=== PATIENT | male | born 1970 | race Caucasian/White ===

== ENCOUNTER 2017-04-15 07:56 | Emergency (ER) | payer OTHER ==
[~2017-04-15] VITALS: Ht 190.5 cm; Wt 167.8 kg
[~2017-04-15 07:56] MED LIST: AMLO10TA2 PO; ARIP30TA PO; ASPI81TA2 PO; ATOR40TA PO; FOLI1TAB16 PO; GABA-534 PO; GABA-536 PO; LISI-658 PO; METH4TAB16 PO; METO25TA20 PO; Nitroglycerin SL; SERT100T PO; TEMA30CA PO; TRAZ-147 PO
--- NOTE | 2017-04-15 08:20 | NUR ---
Ирина from street dt suicidal thought with plan to ran in traffic. Patient is aao4.Appears in no apparent distress. VSs.
[2017-04-15] MEDS ORDERED: LORAZEPAM 1 MG TABLET ONE (08:22)
[2017-04-15 08:26] LABS: BASOPHILS % (AUTO) 0.3 % (0.0-2.0); EOSINOPHILS # (AUTO) 0.2 /CMM (0.0-0.7); EOSINOPHILS % (AUTO) 1.9 % (0.0-6.0); HEMATOCRIT 45 % (39-51); HEMOGLOBIN 15.1 g/dL (13.5-17.5); LYMPHOCYTES # (AUTO) 1.8 /CMM (0.8-4.8); LYMPHOCYTES % (AUTO) 13.9 % (20.0-44.0); MEAN CORPUSCULAR HEMOGLOBIN 30 PG (26.0-33.0); MEAN CORPUSCULAR HGB CONC 34 g/dl (31.0-36.0); MEAN CORPUSCULAR VOLUME 89 fL (80-96); MONOCYTES # (AUTO) 0.6 /CMM (0.1-1.30); NEUTROPHILS % (AUTO) 78.9 % (43.0-81.0); PLATELET COUNT (AUTO) 190 /CMM (150-450); RDW COEFFICIENT OF VARIATION 14.4 (11.5-15.0); RED BLOOD CELL COUNT(AUTO) 5.05 MIL/uL (4.5-6.0); WHITE BLOOD COUNT (AUTO) 12.7 K/uL (4.3-11.0)
--- NOTE | 2017-04-15 08:27 | NUR ---
medicated pt as ordered
[2017-04-15] MEDS ORDERED: LORAZEPAM 1 MG TABLET PO ONE (08:30)
[2017-04-15 08:35] LABS: CALCIUM, SERUM 9.1 mg/dL (8.5-10.1); CARBON DIOXIDE 30 mmol/L (21-32); CHLORIDE 103 mmol/L (98-107); CREATININE 1.1 mg/dL (0.6-1.3); GLUCOSE 94 mg/dL (74-106); POTASSIUM 3.6 mmol/L (3.5-5.1); SODIUM SERUM 140 mmol/L (136-145); UREA NITROGEN, BLOOD 15 mg/dL (7-18)
[2017-04-15 08:41] LABS: ACETAMINOPHEN 0 ug/ml (10-30); ALANINE AMINOTRANSFERASE 63 U/L (12-78); ALBUMIN 3.7 g/dL (3.4-5.0); ALCOHOL, BLOOD < 3 mg/dL (0-0); ALKALINE PHOSPHATASE 94 U/L (46-116); ASPARTATE AMINOTRANSFERASE 100 U/L (15-37); BILIRUBIN,DIRECT 0.2 mg/dL (0.0-0.2); BILIRUBIN,TOTAL 0.7 mg/dL (0.2-1.0); SALICYLATE 1.6 mg/dL (2.8-20.0); TOTAL PROTEIN, SERUM 7.9 g/dL (6.4-8.2)
--- NOTE | 2017-04-15 08:53 | NUR ---
[facility] CALLED FOR PATIENT EVAL [phone]. LEFT VOICE MESSAGE.
--- NOTE | 2017-04-15 09:03 | NUR ---
Urine sample sent to lab
--- NOTE | 2017-04-15 09:14 | NUR ---
moraima called back, eta 60 min
[2017-04-15 09:51] LABS: APPEARANCE,URINE CLEAR (CLEAR); BILIRUBIN,URINE NEGATIVE (NEGATIVE); BLOOD, URINE NEGATIVE Ery/uL (NEGATIVE); COLOR,URINE YELLOW (YELLOW); KETONES,URINE NEGATIVE (NEGATIVE); LEUKOCYTE ESTERASE ,URINE NEGATIVE (NEGATIVE); NITRITE, URINE NEGATIVE (NEGATIVE); PROTEIN,URINE NEGATIVE (NEGATIVE); UGLUCOSE NEGATIVE (NEGATIVE); UROBILINOGEN,URINE 0.2 EU/dL (0.2)
[2017-04-15 11:41] VITALS: BP 124/60
--- NOTE | 2017-04-15 11:51 | NUR ---
CALLED [facility] FOR TRANSPORT TO [facility] 12PM, TRIP #[id number]
--- NOTE | 2017-04-15 12:32 | NUR ---
report given to nurse Son at [facility]
--- NOTE | 2017-04-15 12:38 | NUR ---
PATIENT TRANSPPPORTED TO [facility]
== END 2017-04-15 12:39 ==
LOC: ER 08:00
DX: F32.9 Major depressive disorder, single episode, unspecified (principal); I10 Essential (primary) hypertension; E11.9 Type 2 diabetes mellitus without complications; F20.9 Schizophrenia, unspecified; F17.200 Nicotine dependence, unspecified, uncomplicated; F10.10 Alcohol abuse, uncomplicated; Z88.8 Allergy status to other drugs, medicaments and biological substances; Z79.82 Long term (current) use of aspirin; Z79.84 Long term (current) use of oral hypoglycemic drugs
CPT/HCPCS: 36415; 80048; 80076; 80305; 80329; 81001; 85025; 99285; A4606; G0480 ×2; Z7610; 81000-TC

== ENCOUNTER 2017-06-10 10:52 | Emergency (ER) | payer OTHER ==
[~2017-06-10] VITALS: Ht 177.8 cm; Wt 136.1 kg
[~2017-06-10 10:52] MED LIST changes: -ARIP30TA PO; +ARIP30TA3 PO; +ASPI-1169 PO; -ASPI81TA2 PO
[2017-06-10 10:56] VITALS: BP 140/79
[2017-06-10] MEDS ORDERED: LORAZEPAM 1 MG TABLET PO ONE (11:30)
[2017-06-10] MEDS ORDERED: LORAZEPAM 1 MG TABLET ONE (12:04)
== END 2017-06-10 12:28 | disposition home or self-care (01) ==
LOC: ER 10:54
DX: F15.10 Other stimulant abuse, uncomplicated (principal); I10 Essential (primary) hypertension; E11.9 Type 2 diabetes mellitus without complications; F32.9 Major depressive disorder, single episode, unspecified; F20.9 Schizophrenia, unspecified; F10.10 Alcohol abuse, uncomplicated; F17.200 Nicotine dependence, unspecified, uncomplicated; Z79.82 Long term (current) use of aspirin; Z88.8 Allergy status to other drugs, medicaments and biological substances
CPT/HCPCS: 99283; A4606; Z7610

== ENCOUNTER 2017-10-11 19:53 | Inpatient (IN) | payer OTHER ==
[~2017-10-11] VITALS: Ht 180.3 cm; Wt 129.7 kg
[~2017-10-11 19:53] MED LIST changes: -AMLO10TA2 PO; +AMLO10TA6 PO; -TRAZ-147 PO; +TRAZ-214 PO
--- NOTE | 2017-10-11 20:00 | NUR ---
PT TO ER BED 12. BIB RA FROM STREET C/O CP X 2 HOURS. DENIES SOB. PT PLACED IN GOWN AND ON PHOTOGRAPHER HELPER. VSS/RESP EVEN UNLABORED/NAD NOTED/SKIN WARM AND DRY/AFEBRILE/DENIES N-V-D/AOX4. MD AT BEDSIDE FOR EVAL.
--- NOTE | 2017-10-11 20:03 | NUR ---
18G IV X 1 ATTEMPT TO L HAND USING ASEPTIC TECH, BLOOD HANDED OVER TO THE LAB AT BEDSIDE. IV FLUSHES EASILY WITH NS, NO S/S INFILTRATION NOTED AT THIS TIME.
--- NOTE | 2017-10-11 20:05 | NUR ---
EMT AT BEDSIDE FOR EKG.
[2017-10-11 20:13] LABS: BASOPHILS # (AUTO) 0.4 /CMM (0.0-0.2); BASOPHILS % (AUTO) 3.3 % (0.0-2.0); EOSINOPHILS % (AUTO) 2.8 % (0.0-6.0); HEMATOCRIT 44 % (39-51); HEMOGLOBIN 14.8 g/dL (13.5-17.5); LYMPHOCYTES # (AUTO) 2.1 /CMM (0.8-4.8); LYMPHOCYTES % (AUTO) 18.1 % (20.0-44.0); MEAN CORPUSCULAR HGB CONC 34 g/dl (31.0-36.0); MEAN CORPUSCULAR VOLUME 86 fL (80-96); MONOCYTES # (AUTO) 0.8 /CMM (0.1-1.30); MONOCYTES % (AUTO) 6.5 % (2.0-12.0); NEUTROPHILS # (AUTO) 8.2 /CMM (1.8-8.9); NEUTROPHILS % (AUTO) 69.3 % (43.0-81.0); PLATELET COUNT (AUTO) 237 /CMM (150-450); RDW COEFFICIENT OF VARIATION 14.2 (11.5-15.0); RED BLOOD CELL COUNT(AUTO) 5.12 MIL/uL (4.5-6.0); WHITE BLOOD COUNT (AUTO) 11.8 K/uL (4.3-11.0)
[2017-10-11] MEDS ORDERED: ASPIRIN 325 MG TABLET ONE (20:16)
[2017-10-11 20:21] LABS: ALCOHOL, BLOOD 26 mg/dL (0-0); CALCIUM, SERUM 8.9 mg/dL (8.5-10.1); CARBON DIOXIDE 25 mmol/L (21-32); CHLORIDE 103 mmol/L (98-107); CREATININE 1.2 mg/dL (0.6-1.3); GLUCOSE 104 mg/dL (74-106); POTASSIUM 3.7 mmol/L (3.5-5.1); SODIUM SERUM 137 mmol/L (136-145); UREA NITROGEN, BLOOD 12 mg/dL (7-18)
[2017-10-11 20:24] LABS: INR 0.89 (0.85-1.15)
[2017-10-11 20:28] LABS: TROPONIN I < 0.017 ng/mL (0.00-0.056)
[2017-10-11] MEDS ORDERED: ASPIRIN 325 MG TABLET PO ONE (20:30)
--- NOTE | 2017-10-11 20:37 | NUR ---
PT VOICED TO ER THAT HE WANTS TO HURT HIMSELF BY RUNNING OUT IN TO TRAFFIC. SUICIDE PRECAUTIONS IN PLACE, PT BELONGINGS PLACED AT NURSES STATION.
--- NOTE | 2017-10-11 20:41 | NUR ---
DARCY CALLED, HANS CAMARENA PRINTED CIRCUIT BOARDS PLASMA ETCHER, TRANSFERRED TO
--- NOTE | 2017-10-11 20:42 | NUR ---
CALLED NURSING SUP. FOR TELE BED
--- NOTE | 2017-10-11 20:52 | NUR ---
TELE 114-1 FOR CHEST PAIN, HANS CAMARENA ADMITTING
--- NOTE | 2017-10-11 21:04 | NUR ---
UNABLE TO OBTAIN URINE, MADE AWARE.
--- NOTE | 2017-10-11 21:11 | NUR ---
ENDORSED TO GARRISON NICK FOR CJ.
--- NOTE | 2017-10-11 21:11 | NUR ---
Jose mcgill in [facility] - 10/11/17 at 2122 by SHAJI REPORT GIVEN TO GARRISON COLON FOR CJ.
--- NOTE | 2017-10-11 21:21 | NUR ---
PT TRANSPORTED VIA STRETCHER ON SOUND MIXER WITH RN PER ACLS PROTOCOL. VSS.
[2017-10-11 22:00] VITALS: BP 137/81
[2017-10-11] MEDS ORDERED: Z GUARD REMEDY 2 OZ OINT TP PRN (22:00)
[2017-10-11] MEDS ORDERED: HYDROCODONE/APAP 5/325MG 1 EACH TABLET PO PRN (22:00)
[2017-10-11] MEDS ORDERED: MAG HYDROX/AL HYDROX/SIMETH 30 ML UDC PO PRN (22:00)
[2017-10-11] MEDS ORDERED: NITROGLYCERIN 0.4 MG/TAB BOTTLE SL PRN (22:00)
[2017-10-11] MEDS ORDERED: ACETAMINOPHEN 325 MG TABLET PO PRN (22:00)
[2017-10-11] MEDS ORDERED: ONDANSETRON HCL/PF 4 MG/2 ML VIAL IVP PRN (22:00)
[2017-10-11] MEDS ORDERED: HYDROCODONE/APAP 10/325MG 1 EA TABLET PO PRN (22:00)
[2017-10-11] MEDS ORDERED: MAGNESIUM HYDROXIDE 30 ML UDC PO PRN (22:00)
--- NOTE | 2017-10-11 23:00 | NUR ---
RN OPENING NOTES RECEDED PT FROM ER. PT IS STABLE, A/O X3,NO ACUTE DISTRESS IS NOTED AT THIS TIME. PT COMPLINES OF MILD , NOT RADIATING CHEST PAIN 3/10. PT O2 LEVEL IS 91% RA, PT PLACED ON 3L O2 NC, OXYGENATION LEVEL WENT UP TO 96%. PT BELONGING AT BED SIDE AND DOCUMENTED, SAFETY PRECAUTIONS IMPLEMENTED, BED IN LOWEST, LOCKED POSITION, CALL LIGHT IN REACH, PT IS ORIENTED TO THE UNIT AND THE SITTER IS BEDSIDE. DR CAMARENA AT BEDSIDE, TALKED TO THE PT. WILL CONT. MONITORING.
[2017-10-12] VITALS (8 sets, daily range): BP systolic 125–146; BP diastolic 55–93
[2017-10-12] MEDS: ATORVASTATIN 40 MG TABLET PO SCH ×2 (00:01→21:15)
[2017-10-12] MEDS: ENOXAPARIN SODIUM 40 MG/0.4 ML DISP.SYRIN SQ SCH ×2 (00:03→21:17)
[2017-10-12 05:32] LABS: BASOPHILS # (AUTO) 0.1 /CMM (0.0-0.2); BASOPHILS % (AUTO) 1.3 % (0.0-2.0); EOSINOPHILS % (AUTO) 3.6 % (0.0-6.0); HEMATOCRIT 41 % (39-51); LYMPHOCYTES # (AUTO) 2.1 /CMM (0.8-4.8); LYMPHOCYTES % (AUTO) 19.2 % (20.0-44.0); MEAN CORPUSCULAR HGB CONC 34 g/dl (31.0-36.0); MEAN CORPUSCULAR VOLUME 86 fL (80-96); MONOCYTES # (AUTO) 0.7 /CMM (0.1-1.30); MONOCYTES % (AUTO) 6.1 % (2.0-12.0); NEUTROPHILS # (AUTO) 7.8 /CMM (1.8-8.9); NEUTROPHILS % (AUTO) 69.8 % (43.0-81.0); PLATELET COUNT (AUTO) 199 /CMM (150-450); RDW COEFFICIENT OF VARIATION 14.9 (11.5-15.0); RED BLOOD CELL COUNT(AUTO) 4.77 MIL/uL (4.5-6.0); WHITE BLOOD COUNT (AUTO) 11.1 K/uL (4.3-11.0)
[2017-10-12 06:00] LABS: CALCIUM, SERUM 8.6 mg/dL (8.5-10.1); CREATININE 1.1 mg/dL (0.6-1.3); MAGNESIUM 2.1 mg/dL (1.8-2.4); PHOSPHORUS 2.6 mg/dL (2.5-4.9)
--- NOTE | 2017-10-12 06:30 | NUR ---
RN CLOSING NOTES NO ACUTE CHANGES NOTED DURING MY SHIFT. PT COMFORTABLY RESTING IN BED,NO COMPLAIN OF PAIN, IV IS PATIENT, FLASHED ON PT LEFT HAND. PT CARE WILL BE ENDORSED TO AM NURSE.
--- NOTE | 2017-10-12 08:00 | NUR ---
COAGULATOR NOTE PATIENT IN BED ALERT , ORIENTED , NO SOB NOTED NO C\O CHEST PAIN AT THIS TIME , ALL NEEDS ATTENDED ON TELE MONITOR SR HR 88 , BED IN LOWEST AND LOCKED POSITION , CALL LIGHT WITHIN REACH , SITTER AT BEDSIDE , ON 3L NS SAT 97% ,HL;ON LT HAND INTACT NO S\S INFECTION NOTED , WILL CONT TO MONITOR CLOSELY
[2017-10-12 08:49] LABS: THYROID STIMULATING HORMONE 0.747 uIU/mL (0.358-3.74)
[2017-10-12] MEDS ORDERED: GABAPENTIN 300 MG CAPSULE PO SCH (09:00)
[2017-10-12] MEDS: FOLIC ACID 1 MG TABLET PO SCH (09:00)
[2017-10-12] MEDS ORDERED: GABAPENTIN 400 MG CAPSULE PO SCH ×2 (09:00)
[2017-10-12] MEDS ORDERED: METOPROLOL TARTRATE 25 MG TABLET PO SCH (09:00)
[2017-10-12] MEDS: SERTRALINE HCL 50 MG TABLET PO SCH (09:01)
[2017-10-12] MEDS: AMLODIPINE BESYLATE 10 MG TABLET PO SCH (09:01)
[2017-10-12] MEDS: LISINOPRIL (20MG) 20 MG TABLET PO SCH (09:02)
[2017-10-12] MEDS: ASPIRIN 81 MG TAB.CHEW PO SCH (09:03)
[2017-10-12] MEDS: GABAPENTIN 300 MG CAPSULE PO SCH ×3 (09:03→17:16)
--- NOTE | 2017-10-12 11:53 | NUR ---
STITCHER UTILITY NOTE DR PALMA SEEN PATIENT , NOT IN ACUTE DISTRESS ALL NEEDS ATTENDED
[2017-10-12] MEDS: hydrALAZINE HCL 50 MG TABLET PO SCH ×2 (12:13→17:17)
--- NOTE | 2017-10-12 14:08 | NUR ---
ms rn note pinky from crisis team rn seen patint .also seen by thien shelton to monitor closely
--- NOTE | 2017-10-12 15:21 | NUR ---
MS RN NOTE CALLED TO [facility] UNIT FOE REPORT ,UNABLE TO GIVE REPORT WAS ANSWER MACHINE ON ,WILL F\U
--- NOTE | 2017-10-12 18:32 | NUR ---
RN NOTES PT RESTING COMFORTABLY, CONTINUE SITTER AT BEDSIDE. ABLE TO FEED SELF AND SELF AMBULATE TO BATHROOM. WILL CONTINUE TO MONITOR CALL QUINTANILLA WITHIN REACH.
--- NOTE | 2017-10-12 19:54 | NUR ---
RN NOTE PATIENT IN THE BED, ASLEEP, SNORING, AWAKES EASILY, SITTER IS BY BEDSIDE, ROOM AIR, NO RESPIRATORY DISTRESS NOTED, ALL SAFETY MEASURES TAKEN, CALL LIGHT WITHIN REACH, BED IN THE LOWEST POSITION, CALL LIGHT WITHIN REACH, WILL CONTINUE TO MONITOR PATIENT
[2017-10-12] MEDS ORDERED: TRAZODONE 50 MG TABLET PO SCH (22:00)
[2017-10-12] MEDS ORDERED: ARIPIPRAZOLE 5 MG TABLET PO SCH (22:00)
[2017-10-13 04:00] VITALS: BP 112/68
--- NOTE | 2017-10-13 07:30 | NUR ---
PRODUCT SAFETY SPECIALIST INITIAL NOTES RECEIVED PATIENT SLEEPING IN BED, AOX3, NO SIGNS OF DISTRESS, ROOM AIR, NO SUICIDAL IDEATIONS AT THIS TIME, AMBULATORY, L HAND 18G, SL CLEAN AND PATENT, SITTER AT BEDSIDE FOR SAFETY, BED IN LOW AND LOCKED POSITION CALL LIGHT WITHIN REACH, WILL CONTINUE TO MONITOR.
[2017-10-13 08:00] VITALS: BP 111/64
[2017-10-13] MEDS: SERTRALINE HCL 50 MG TABLET PO SCH (09:26)
[2017-10-13] MEDS: GABAPENTIN 300 MG CAPSULE PO SCH ×2 (09:26→14:14)
[2017-10-13] MEDS: ASPIRIN 81 MG TAB.CHEW PO SCH (09:26)
[2017-10-13] MEDS: FOLIC ACID 1 MG TABLET PO SCH (09:26)
[2017-10-13] MEDS: AMLODIPINE BESYLATE 10 MG TABLET PO SCH (09:26)
[2017-10-13] MEDS: hydrALAZINE HCL 50 MG TABLET PO SCH ×2 (09:26→14:17)
[2017-10-13] MEDS: LISINOPRIL (20MG) 20 MG TABLET PO SCH (09:27)
--- NOTE | 2017-10-13 10:20 | NUR ---
Social service consult requested by TRI Wilcox for suicidal ideations and finding psychiatric placement for pt. Pt. is a 47 year old male who was admitted to [facility] for chest pain and suicidal ideations. Pt. was assessed by crisis team and pt. is willing to go voluntary to a psychiatric hospital. GERARDO met with pt. bedside. Pt. is alert and oriented x 4. Pt. states he resides with his mother Suzanne at an apartment located at [id number] [place] [address] [address] in [facility]. Pt's emergency contact is his mother Suzanne . Pt. continues to have suicidal ideations and plans to run into traffic. Pt. requested to go to [facility] psychiatric hospital in [place]. GERARDO contacted intake at [facility] and spoke to Brittany who requested for SW to fax clinicals and she will forward them to [facility]. GERARDO faxed clinicals to [facility] .
--- NOTE | 2017-10-13 11:05 | NUR ---
WOUND CARE CONSULT: PT REFUSED SKIN ASSESSMENT, WANTS TO BE LEFT ALONE. WILL SEE PT PT CONDITION PERMITS. PER NURSING STAFF. PT IS AMBULATORY AND CONTINENT.
--- NOTE | 2017-10-13 12:00 | NUR ---
GERARDO received a call from Brittany at [facility] informing GERARDO to have pt's RN give report to GARRISON Clay at [facility] . GERARDO called GARRISON Sandoval and gave her the contact number for Danna for RN report. Addendum: 10/13/17 at 1202 by MARYURI CARRILLO GERARDO received a call from pt's GARRISON Sandoval informing GERARDO that they will accept the pt. at [facility] and are awaiting discharges in a couple of hours.
[2017-10-13 14:17] VITALS: BP 117/64
--- NOTE | 2017-10-13 15:10 | NUR ---
CIRCUS TRAIN SUPERVISOR NOTES PATIENT DISCHARGE ORDERS GIVEN BY DR. LINDA NIETO, ALL DISCHARGE PAPERWORK SIGNED, AND BELONGINGS LIST SIGNED, PICTURES TAKEN LAST NIGHT WITHIN 24 HOUR PERIODS, IV DC, CATHETER INTACT, PATIENT DRESSED, VITALS STABLE, PATIENT CONTINUES TO BE DEPRESSED WITH SUICIDAL IDEATION, ALL TEACHING DONE, REPORT GIVEN TO [facility] ROOM 612B, CALLED , REPORT GIVEN TO GARRISON JALLOH. PATIENT PICKED UP BY [facility].
== END 2017-10-13 15:10 | DRG 198 ==
LOC: ER 19:54 → TELE1 20:57 → MEDSG1 10-12 11:18
PROVIDERS: ADMIT Nurse Practitioner Acute Care; ATTEND Nurse Practitioner Acute Care
DX: I25.10 Atherosclerotic heart disease of native coronary artery without angina pectoris (principal); R45.851 Suicidal ideations; E66.01 Morbid (severe) obesity due to excess calories; I10 Essential (primary) hypertension; E11.9 Type 2 diabetes mellitus without complications; D72.829 Elevated white blood cell count, unspecified; I25.2 Old myocardial infarction; F25.1 Schizoaffective disorder, depressive type; K21.9 Gastro-esophageal reflux disease without esophagitis; G47.33 Obstructive sleep apnea (adult) (pediatric); F17.210 Nicotine dependence, cigarettes, uncomplicated; Z91.5 Personal history of self-harm; Z91.19 Patient's noncompliance with other medical treatment and regimen; F15.90 Other stimulant use, unspecified, uncomplicated; Z68.39 Body mass index [BMI] 39.0-39.9, adult
CPT/HCPCS: 36415; 71045-TC; 80048-TC; 80061-TC; 80305; 83735-TC; 84100-TC; 84443-TC; 84484-TC; 85025-TC; 85730-TC; 87081-TC; A4606; G0480; J1650; Z7610

== ENCOUNTER 2018-12-13 15:14 | Emergency (ER) | payer MEDICAID, OTHER ==
[~2018-12-13] VITALS: Ht 172.7 cm; Wt 136.1 kg
[~2018-12-13 15:14] MED LIST changes: -AMLO10TA6 PO; +AMLO10TA7 PO; -METH4TAB16 PO; -TEMA30CA PO
--- NOTE | 2018-12-13 15:38 | NUR ---
PT BIBRA FOUND WANDERING THE STREETS; REPORTS S/I, PT VERBAL, NOT ANSWERING QUESTION APPROPRIETLY, NAD NOTED, VSS, PENDING MD BAUTISTA
--- NOTE | 2018-12-13 15:40 | NUR ---
S/I PRECAUTIONS STARTED, ALL BELOGINGS KEPT IN UTILITY ROOM, SECURITY CALLED FOR PT TO BE WANDED.
--- NOTE | 2018-12-13 15:46 | NUR ---
CALLED NURSING SUP FOR VANGIE
[2018-12-13 15:48] LABS: BASOPHILS # (AUTO) 0.1 /CMM (0.0-0.2); BASOPHILS % (AUTO) 0.7 % (0.0-2.0); EOSINOPHILS % (AUTO) 2.1 % (0.0-6.0); HEMATOCRIT 44 % (39-51); HEMOGLOBIN 14.6 g/dL (13.5-17.5); LYMPHOCYTES # (AUTO) 1.6 /CMM (0.8-4.8); LYMPHOCYTES % (AUTO) 14.5 % (20.0-44.0); MEAN CORPUSCULAR HGB CONC 33 g/dl (31.0-36.0); MEAN CORPUSCULAR VOLUME 89 fL (80-96); MONOCYTES # (AUTO) 0.7 /CMM (0.1-1.30); MONOCYTES % (AUTO) 6.7 % (2.0-12.0); NEUTROPHILS # (AUTO) 8.4 /CMM (1.8-8.9); PLATELET COUNT (AUTO) 204 /CMM (150-450); RED BLOOD CELL COUNT(AUTO) 4.98 MIL/uL (4.5-6.0); WHITE BLOOD COUNT (AUTO) 11.1 K/uL (4.3-11.0)
[2018-12-13 16:09] LABS: CALCIUM, SERUM 8.7 mg/dL (8.5-10.1); CARBON DIOXIDE 25 mmol/L (21-32); CHLORIDE 103 mmol/L (98-107); GLUCOSE 111 mg/dL (74-106); POTASSIUM 3.4 mmol/L (3.5-5.1); SODIUM SERUM 138 mmol/L (136-145); UREA NITROGEN, BLOOD 7 mg/dL (7-18)
[2018-12-13 16:24] LABS: ALANINE AMINOTRANSFERASE 47 U/L (12-78); ALBUMIN 3.5 g/dL (3.4-5.0); ALCOHOL, BLOOD 61 mg/dL (0-0); ALKALINE PHOSPHATASE 93 U/L (46-116); ASPARTATE AMINOTRANSFERASE 65 U/L (15-37); BILIRUBIN,DIRECT 0.1 mg/dL (0.0-0.2); BILIRUBIN,TOTAL 0.5 mg/dL (0.2-1.0); TOTAL PROTEIN, SERUM 7.5 g/dL (6.4-8.2)
[2018-12-13 16:25] LABS: ACETAMINOPHEN < 2 ug/ml (10-30); SALICYLATE < 2.8 mg/dL (2.8-20.0)
[2018-12-13] MEDS ORDERED: LORAZEPAM 1 MG TABLET ONE (17:00)
[2018-12-13] MEDS ORDERED: LORAZEPAM 1 MG TABLET PO ONE (17:00)
[2018-12-13] MEDS ORDERED: IV NS 0.9% 1,000 ML IV ONE ×2 (20:00→20:30)
[2018-12-13] MEDS ORDERED: LORAZEPAM INJ 2 MG/ML VIAL IV ONE (20:00)
[2018-12-13] MEDS ORDERED: POTASSIUM CHLORIDE 20 MEQ TAB.PRT.SR PO ONE ×2 (20:23→20:30)
[2018-12-13] MEDS ORDERED: LORAZEPAM INJ 2 MG/ML VIAL ONE ×2 (20:25→20:27)
--- NOTE | 2018-12-13 20:33 | NUR ---
ATIVAN 2MG SPILLED UPON ASPIRATION. MEDICATION WASTED WITNESSED BY GARRISON SELBY
[2018-12-13 21:16] LABS: APPEARANCE,URINE Clear (CLEAR); BILIRUBIN,URINE Negative (NEGATIVE); BLOOD, URINE Trace-intact Ery/uL (NEGATIVE); COLOR,URINE Yellow (YELLOW); KETONES,URINE 15 (NEGATIVE); LEUKOCYTE ESTERASE ,URINE Negative (NEGATIVE); NITRITE, URINE Negative (NEGATIVE); PH,URINE 5.5 (5.0-8.0); PROTEIN,URINE Negative (NEGATIVE); UGLUCOSE Negative (NEGATIVE); UROBILINOGEN,URINE 0.2 EU/dL (0.2)
[2018-12-13 21:30] LABS: BACTERIA,URINE None seen /HPF (None Seen); RBC,URINE 0-2 /HPF (0-2); SQUAMOUS EPITHELIAL CELL,UR Few /HPF (None Seen); WBC,URINE 0-2 /HPF (0-3)
--- NOTE | 2018-12-13 23:02 | NUR ---
SOIL CONSERVATION TECHNICIAN AT BEDSIDE FOR BLOOD DRAW
--- NOTE | 2018-12-14 00:08 | NUR ---
[facility] CALLED ASKING REGARDING CK LAB RESULT, PENDING AT THIS TIME. WILL FAX RESULTS ONCE AVAILABLE
--- NOTE | 2018-12-14 01:15 | NUR ---
PT RESTING COMFORTABLY IN BED. VITAL SIGNS STABLE. NO ACUTE DISTRESS NOTED AT THIS TIME. SITTER AT BEDSIDE. WILL CONTINUE TO MONITOR
--- NOTE | 2018-12-14 01:26 | NUR ---
PER DR. GRAFF, CK TRENDING DOWN AND MEDICALLY CLEARED. FAXED PACKET TO [facility]. WAITING FOR FOLLOW UP FROM INTAKE
--- NOTE | 2018-12-14 01:35 | NUR ---
PER CANDIDA FROM [facility], REQUESTING TROPONIN LEVEL. PER DR. GRAFF, WILL ADD ORDER.
--- NOTE | 2018-12-14 02:40 | NUR ---
PT ACCEPTED TO [facility] ACCEPTING MD: DR. STEARNS
--- NOTE | 2018-12-14 02:42 | NUR ---
CALLED [facility] FOR TRANSPORT TO [facility]. ETA [phone]. TRIP NUMBER [id number].
--- NOTE | 2018-12-14 02:50 | NUR ---
GAVE REPORT [facility]
--- NOTE | 2018-12-14 04:40 | NUR ---
GAVE REPORT TO [facility] FOR TRANSPORTATION CJ
[2018-12-14 04:43] VITALS: BP 104/58
== END 2018-12-14 05:02 ==
LOC: ER 15:20
DX: R45.851 Suicidal ideations (principal); F23 Brief psychotic disorder; F15.10 Other stimulant abuse, uncomplicated; I10 Essential (primary) hypertension; E11.9 Type 2 diabetes mellitus without complications; F17.200 Nicotine dependence, unspecified, uncomplicated; Z88.8 Allergy status to other drugs, medicaments and biological substances; Z79.899 Other long term (current) drug therapy; Z79.82 Long term (current) use of aspirin
CPT/HCPCS: 36415 ×2; 80048; 80076; 80307; 80329; 81001; 82550 ×2; 84484; 85025; 96374; 99285; A4349; J2060; J7030; 80305; 81000-TC; G0480

== ENCOUNTER 2019-04-05 10:25 | Emergency (ER) | payer MEDICAID, OTHER ==
[~2019-04-05] VITALS: Ht 180.3 cm; Wt 173.3 kg
--- NOTE | 2019-04-05 10:32 | NUR ---
called in waiting room. pt states "not ready yet."
--- NOTE | 2019-04-05 11:15 | NUR ---
ASSUMED CARE FOR PT, PT STATES ""im depressed and feeling suicidal" +plan, run through traffic, od on meds" PT AAOX4, -SOB, NAD NOTED, VSS.
[2019-04-05 11:54] LABS: APPEARANCE,URINE Clear (CLEAR); BILIRUBIN,URINE Negative (NEGATIVE); BLOOD, URINE Negative Ery/uL (NEGATIVE); COLOR,URINE Yellow (YELLOW); KETONES,URINE Negative (NEGATIVE); LEUKOCYTE ESTERASE ,URINE Negative (NEGATIVE); NITRITE, URINE Negative (NEGATIVE); PH,URINE 5.5 (5.0-8.0); PROTEIN,URINE Negative (NEGATIVE); UGLUCOSE Negative (NEGATIVE); UROBILINOGEN,URINE 0.2 EU/dL (0.2)
[2019-04-05 12:06] LABS: BASOPHILS # (AUTO) 0.1 /CMM (0.0-0.2); BASOPHILS % (AUTO) 1.3 % (0.0-2.0); HEMATOCRIT 48 % (39-51); HEMOGLOBIN 15.8 g/dL (13.5-17.5); LYMPHOCYTES # (AUTO) 2.5 /CMM (0.8-4.8); LYMPHOCYTES % (AUTO) 24.6 % (20.0-44.0); MEAN CORPUSCULAR HGB CONC 33 g/dl (31.0-36.0); MEAN CORPUSCULAR VOLUME 87 fL (80-96); MONOCYTES # (AUTO) 0.6 /CMM (0.1-1.30); MONOCYTES % (AUTO) 6.3 % (2.0-12.0); NEUTROPHILS # (AUTO) 6.5 /CMM (1.8-8.9); NEUTROPHILS % (AUTO) 64.8 % (43.0-81.0); PLATELET COUNT (AUTO) 222 /CMM (150-450); RED BLOOD CELL COUNT(AUTO) 5.49 MIL/uL (4.5-6.0)
[2019-04-05 12:15] LABS: CALCIUM, SERUM 8.7 mg/dL (8.5-10.1)
[2019-04-05 12:21] LABS: ALBUMIN 4.1 g/dL (3.4-5.0); BILIRUBIN,DIRECT 0.1 mg/dL (0.0-0.2); BILIRUBIN,TOTAL 0.2 mg/dL (0.2-1.0); SALICYLATE 2.9 mg/dL (2.8-20.0); TOTAL PROTEIN, SERUM 8.2 g/dL (6.4-8.2)
--- NOTE | 2019-04-05 13:15 | NUR ---
CALLED FOR MEAL TRAY
--- NOTE | 2019-04-05 14:14 | NUR ---
Social service consult requested by Dr. Ferraro for suicidal ideations with a plan to "run into traffic." Pt. is a 48 year old male who presented to the emergency room stating that he wants to run into traffic. Patient states "they're waiting for me over at [place]". Per Dr. Ferraro's report pt. smells of alcohol but denies any recent alcohol or drug use. GERARDO met with pt. bedside. Pt. is alert and oriented x4. pt. appears dirty and disheveled. Pt. eyes are bloodshot red. Pt. appears restless and eager to go to [facility]. Pt. stated, they have a bed for me in [place]." SW informed pt. they will accept him once his alcohol level is accepted. Pt. is homeless and has been for the past 6 months. Pt. has been staying on the streets in [facility]. Pt. has an FSP program he is working with in [place] to assist him with housing. Pt. has a psychiatric diagnosis of Schizophrenia, Depression and Anxiety. Pt. states he is currently out of his medications and is unsure as to how long. Pt. has a history of psychiatric hospitalizations. Per pt. the last hospitalization was a long time ago. Pt. denies any current drug use but has a history of using PCP. Pt. stated he has been drinking alcohol and has been on a " suicidal trip" since yesterday. Pt. states he is suicidal with a plan to run into traffic. Pt. is seeking voluntary psychiatric admission to [facility]. GERARDO contacted [facility] who informed SW they will have a bed for the pt. at [facility]. GERARDO faxed clinical referral packet to [facility] .
--- NOTE | 2019-04-05 15:24 | NUR ---
GERARDO received a call from Jabier in intake requesting for an updated alcohol level. GERARDO informed him as soon as there is an updated alcohol level she will have ED staff fax it to . GERARDO called ED CRN Ariel and updated him with aforementioned information.
--- NOTE | 2019-04-05 16:00 | NUR ---
Patient is resting comfortably in bed with eyes closed. Easily aroused. VSS
--- NOTE | 2019-04-05 20:58 | NUR ---
FAXED CLINICALS TO [facility]
--- NOTE | 2019-04-05 22:47 | NUR ---
PER [facility], PT ACCEPTED TO [facility]. PENDING MORE INFORMATION ON TRANSFER
--- NOTE | 2019-04-05 23:07 | NUR ---
Jose mcgill in [facility] - 04/05/19 at 2309 by SUSANNE TRANSFER INFO: PT ACCEPTED BY DR STEARNS AND DR VERGARA AT [facility]REG[facility] CHANDLER RN FOR REPORT [phone], AMBULANCE ETA TO FOLLOW
--- NOTE | 2019-04-05 23:08 | NUR ---
TRANSFER INFO: PT ACCEPTED BY DR STEARNS AND DR VERGARA AT [facility] GREGORY CHANDLER RN FOR REPORT [phone], AMBULANCE ETA TO FOLLOW
--- NOTE | 2019-04-05 23:39 | NUR ---
[facility] ETA 0030 TRIP NUMBER [id number]
[2019-04-06] MEDS ORDERED: CLONIDINE HCL 0.1 MG TABLET ONE (00:09)
--- NOTE | 2019-04-06 00:26 | NUR ---
GAVE REPORT TO RADHA JI FROM [facility] FOR CJ
[2019-04-06 01:10] VITALS: BP 159/87
== END 2019-04-06 01:28 ==
LOC: ER 10:33
DX: F10.10 Alcohol abuse, uncomplicated (principal); F15.10 Other stimulant abuse, uncomplicated; I10 Essential (primary) hypertension; E11.9 Type 2 diabetes mellitus without complications; F25.9 Schizoaffective disorder, unspecified; F32.9 Major depressive disorder, single episode, unspecified; F41.9 Anxiety disorder, unspecified; F17.200 Nicotine dependence, unspecified, uncomplicated; E66.01 Morbid (severe) obesity due to excess calories; Y90.4 Blood alcohol level of 80-99 mg/100 ml; Z68.43 Body mass index [BMI] 50.0-59.9, adult; Z59.0 Homelessness; Z79.82 Long term (current) use of aspirin; Z79.899 Other long term (current) drug therapy; Z88.8 Allergy status to other drugs, medicaments and biological substances
CPT/HCPCS: 36415; 80048; 80076; 80305; 80307 ×2; 80329; 81001; 85025; 99285; G0480; L0172; 81000-TC

== ENCOUNTER 2019-04-30 15:24 | Emergency (ER) | payer MEDICAID ==
[~2019-04-30] VITALS: Ht 180.3 cm; Wt 161.0 kg
--- NOTE | 2019-04-30 15:42 | NUR ---
PT SEEN AND EXAMINED BY LYRIC WYLIE.
--- NOTE | 2019-04-30 15:42 | NUR ---
BIB SELF C/O SI "I WANT TO RUN THROUGH TRAFFIC", -HI. PATIENT A/OX4, BREATHING EVEN AND UNLABORED, NO SOB NOTED, NEEDS ATTENDED.
--- NOTE | 2019-04-30 15:56 | NUR ---
ER PHLEB AT BEDSIDE FOR BLOOD DRAW.
--- NOTE | 2019-04-30 15:57 | NUR ---
URINE SPECIMEN COLLECTED AND SENT TO LAB.
--- NOTE | 2019-04-30 16:00 | NUR ---
BELONGINGS KEPT IN SAFE PLACE.
[2019-04-30 16:10] LABS: BASOPHILS # (AUTO) 0.1 /CMM (0.0-0.2); BASOPHILS % (AUTO) 0.9 % (0.0-2.0); HEMATOCRIT 48 % (39-51); HEMOGLOBIN 15.7 g/dL (13.5-17.5); LYMPHOCYTES # (AUTO) 2.3 /CMM (0.8-4.8); MEAN CORPUSCULAR HGB CONC 33 g/dl (31.0-36.0); MEAN CORPUSCULAR VOLUME 88 fL (80-96); MONOCYTES # (AUTO) 0.6 /CMM (0.1-1.30); MONOCYTES % (AUTO) 5.2 % (2.0-12.0); NEUTROPHILS # (AUTO) 7.8 /CMM (1.8-8.9); NEUTROPHILS % (AUTO) 71.9 % (43.0-81.0); PLATELET COUNT (AUTO) 210 /CMM (150-450); RED BLOOD CELL COUNT(AUTO) 5.39 MIL/uL (4.5-6.0); WHITE BLOOD COUNT (AUTO) 10.8 K/uL (4.3-11.0)
[2019-04-30 16:11] LABS: APPEARANCE,URINE Clear (CLEAR); BILIRUBIN,URINE Negative (NEGATIVE); BLOOD, URINE Negative Ery/uL (NEGATIVE); COLOR,URINE Light yellow (YELLOW); KETONES,URINE Negative (NEGATIVE); LEUKOCYTE ESTERASE ,URINE Negative (NEGATIVE); NITRITE, URINE Negative (NEGATIVE); PH,URINE 5.5 (5.0-8.0); PROTEIN,URINE Negative (NEGATIVE); UGLUCOSE Negative (NEGATIVE); UROBILINOGEN,URINE 0.2 EU/dL (0.2)
--- NOTE | 2019-04-30 16:15 | NUR ---
Social service consult requested by DEJAN Pineda for suicidal ideations with a plan to run into traffic. Pt. is a 48 year old male who is requesting voluntary admission to [facility]. GERARDO met with the pt. bedside. Pt. is alert and oriented x 4. Pt. is pleasant and cooperative with SW during the assessment. GERARDO is familiar with the pt. from previous ED visits for the same reason. Pt. is homeless. Pt. receives mental health services at [facility] in [place]. Pt. has a psychiatric diagnosis of Schizoaffective Disorder, Bipolar and Depression. Pt. takes Wellbutrin, Seroquel but couldn't remember the other psychotropic medications. Pt. has high blood pressure and diabetes. Pt. is seeking voluntary admission to [facility]. Pt. has a suicidal plan to run into traffic. Pt. denies drug use. Pt. drinks alcohol and had a beer this AM. Pt. smokes 13 cigarettes per day. GERARDO contacted Manjeet at [facility] in regards to bed availability.Manjeet informed that they will have a bed for the pt. GERARDO updated JASON Wade with aforementioned information.
[2019-04-30 16:17] LABS: CALCIUM, SERUM 9.3 mg/dL (8.5-10.1); POTASSIUM 4.1 mmol/L (3.5-5.1)
[2019-04-30 16:22] LABS: ALBUMIN 3.8 g/dL (3.4-5.0); BILIRUBIN,TOTAL 0.2 mg/dL (0.2-1.0); SALICYLATE 3.1 mg/dL (2.8-20.0); TOTAL PROTEIN, SERUM 8.1 g/dL (6.4-8.2)
--- NOTE | 2019-04-30 16:30 | NUR ---
PATIENT WANDED BY SECURITY. CHANGED INTO GOWN.
--- NOTE | 2019-04-30 16:36 | NUR ---
GERARDO faxed clinical referral packet to [facility] intake .
--- NOTE | 2019-04-30 18:36 | NUR ---
Patient is resting comfortably in bed with eyes closed. Easily aroused. VSS
[2019-04-30 18:37] VITALS: BP 135/84
--- NOTE | 2019-04-30 18:51 | NUR ---
senior label specialist at bedside for repeat alcohol withdrawal.
--- NOTE | 2019-04-30 19:11 | NUR ---
report given to malinda moore.
--- NOTE | 2019-04-30 19:32 | NUR ---
TERRI PALM FROM [facility] [phone], AWARE ALCOHOL SERUM 54. WILL FAX RESULTS TO [facility] [phone]
--- NOTE | 2019-04-30 20:03 | NUR ---
PER DEENA STEARNS/ DR CRAIG REPORT [phone]. UNIT 1.
--- NOTE | 2019-04-30 20:14 | NUR ---
REPORT GIVEN TO GARRISON GOLDBERG AT [facility] FOR CJ
--- NOTE | 2019-04-30 20:18 | NUR ---
SPOKE TO NATHAN AT [facility] 6023 ETA #[id number]
--- NOTE | 2019-04-30 20:49 | NUR ---
UPDATED [facility] ETA 2109
--- NOTE | 2019-04-30 21:10 | NUR ---
PT PICKED UP BY TRANSPORT AMBULANCE
== END 2019-04-30 21:10 ==
LOC: ER 15:32
DX: R45.851 Suicidal ideations (principal); F10.10 Alcohol abuse, uncomplicated; F25.9 Schizoaffective disorder, unspecified; E66.01 Morbid (severe) obesity due to excess calories; I10 Essential (primary) hypertension; E11.9 Type 2 diabetes mellitus without complications; F15.10 Other stimulant abuse, uncomplicated; F32.9 Major depressive disorder, single episode, unspecified; F41.9 Anxiety disorder, unspecified; Y90.2 Blood alcohol level of 40-59 mg/100 ml; Z68.42 Body mass index [BMI] 45.0-49.9, adult; Z04.6 Encounter for general psychiatric examination, requested by authority; Z59.0 Homelessness; Z79.899 Other long term (current) drug therapy; Z79.82 Long term (current) use of aspirin; Z87.891 Personal history of nicotine dependence; Z88.8 Allergy status to other drugs, medicaments and biological substances
CPT/HCPCS: 36415; 80048; 80076; 80305; 80307 ×2; 80329; 81001; 85025; 99285; 99406; G0480; 81000-TC

== ENCOUNTER 2019-06-12 13:37 | Emergency (ER) | payer MEDICAID ==
[~2019-06-12] VITALS: Ht 154.9 cm; Wt 158.8 kg
[~2019-06-12 13:37] MED LIST changes: -TRAZ-214 PO; +TRAZ-257 PO
--- NOTE | 2019-06-12 13:45 | NUR ---
[facility], PT TO BED 15, PT AWAKE, ALERT, CALM AND COOPERATIVE, VSS, NAD NOTED, PENDING MD VALERO
[2019-06-12 14:11] LABS: BASOPHILS # (AUTO) 0.1 /CMM (0.0-0.2); BASOPHILS % (AUTO) 0.8 % (0.0-2.0); EOSINOPHILS % (AUTO) 2.1 % (0.0-6.0); HEMATOCRIT 46 % (39-51); HEMOGLOBIN 14.9 g/dL (13.5-17.5); LYMPHOCYTES # (AUTO) 1.4 /CMM (0.8-4.8); LYMPHOCYTES % (AUTO) 12.7 % (20.0-44.0); MEAN CORPUSCULAR HGB CONC 33 g/dl (31.0-36.0); MEAN CORPUSCULAR VOLUME 87 fL (80-96); MONOCYTES # (AUTO) 0.7 /CMM (0.1-1.30); MONOCYTES % (AUTO) 6.2 % (2.0-12.0); NEUTROPHILS # (AUTO) 8.7 /CMM (1.8-8.9); NEUTROPHILS % (AUTO) 78.2 % (43.0-81.0); PLATELET COUNT (AUTO) 195 /CMM (150-450); RED BLOOD CELL COUNT(AUTO) 5.26 MIL/uL (4.5-6.0); WHITE BLOOD COUNT (AUTO) 11.1 K/uL (4.3-11.0)
[2019-06-12 14:19] LABS: CALCIUM, SERUM 8.7 mg/dL (8.5-10.1); CARBON DIOXIDE 27 mmol/L (21-32); CHLORIDE 99 mmol/L (98-107); GLUCOSE 115 mg/dL (74-106); POTASSIUM 3.5 mmol/L (3.5-5.1); SODIUM SERUM 136 mmol/L (136-145); UREA NITROGEN, BLOOD 16 mg/dL (7-18)
[2019-06-12 14:32] LABS: ACETAMINOPHEN < 2 ug/ml (10-30); ALANINE AMINOTRANSFERASE 28 U/L (12-78); ALBUMIN 3.5 g/dL (3.4-5.0); ALCOHOL, BLOOD 4 mg/dL (0-0); ALKALINE PHOSPHATASE 89 U/L (46-116); ASPARTATE AMINOTRANSFERASE 20 U/L (15-37); BILIRUBIN,DIRECT 0.1 mg/dL (0.0-0.2); BILIRUBIN,TOTAL 0.3 mg/dL (0.2-1.0); SALICYLATE 1.6 mg/dL (2.8-20.0); TOTAL PROTEIN, SERUM 7.6 g/dL (6.4-8.2)
[2019-06-12 15:04] LABS: APPEARANCE,URINE Clear (CLEAR); BILIRUBIN,URINE Negative (NEGATIVE); BLOOD, URINE Negative Ery/uL (NEGATIVE); COLOR,URINE Yellow (YELLOW); KETONES,URINE Negative (NEGATIVE); LEUKOCYTE ESTERASE ,URINE Negative (NEGATIVE); NITRITE, URINE Negative (NEGATIVE); PH,URINE 5.5 (5.0-8.0); PROTEIN,URINE Negative (NEGATIVE); UGLUCOSE Negative (NEGATIVE)
[2019-06-12 15:12] LABS: BACTERIA,URINE Rare /HPF (None Seen); RBC,URINE NONE SEEN /HPF (0-2); SQUAMOUS EPITHELIAL CELL,UR Few /HPF (None Seen); WBC,URINE NONE SEEN /HPF (0-3)
--- NOTE | 2019-06-12 17:46 | NUR ---
PER [facility], CLINICALS ARE STILL BEING REVIEWED, NO BED AVAILABLE AT THIS TIME.
--- NOTE | 2019-06-12 18:04 | NUR ---
SPOKE WITH ODILON FOR [facility]. PATIENT ACCEPTED TO [facility] UNDER THE CARE OF DR. STEARNS (PSYCH) AND DR. VERGARA (MEDICAL DOCTOR). NUMBER TO GIVE REPORT [phone].
--- NOTE | 2019-06-12 18:39 | NUR ---
ARRANGED BLS TRANSPORT WITH [facility], TRIP NUMBER: [id number]
--- NOTE | 2019-06-12 20:11 | NUR ---
NOTED HYPERTENSION, AWARE
[2019-06-12] MEDS ORDERED: LISINOPRIL (20MG) 20 MG TABLET ONE (20:25)
[2019-06-12] MEDS ORDERED: LISINOPRIL (20MG) 20 MG TABLET PO SCH (20:30)
[2019-06-12 21:53] VITALS: BP 120/65
--- NOTE | 2019-06-12 21:59 | NUR ---
NEW ETA [id number]
--- NOTE | 2019-06-12 23:08 | NUR ---
REPORT GIVEN TO JANNY MILLS AT [facility]
== END 2019-06-12 23:09 ==
LOC: ER 13:38
DX: R45.851 Suicidal ideations (principal); F25.9 Schizoaffective disorder, unspecified; F15.10 Other stimulant abuse, uncomplicated; F41.9 Anxiety disorder, unspecified; F32.9 Major depressive disorder, single episode, unspecified; I10 Essential (primary) hypertension; E11.9 Type 2 diabetes mellitus without complications; F10.10 Alcohol abuse, uncomplicated; Y90.0 Blood alcohol level of less than 20 mg/100 ml; Z59.0 Homelessness; Z79.82 Long term (current) use of aspirin; Z79.899 Other long term (current) drug therapy; Z88.8 Allergy status to other drugs, medicaments and biological substances
CPT/HCPCS: 36415; 80048; 80076; 80305; 80307; 80329; 81001; 85025; 99285; G0480; 81000-TC

== ENCOUNTER 2019-06-29 01:16 | Emergency (ER) | payer MEDICAID ==
[~2019-06-29] VITALS: Ht 180.3 cm; Wt 158.8 kg
--- NOTE | 2019-06-29 01:41 | NUR ---
PT WAS SENT FROM [facility] TO GET MEDICALLY CLEARED. +SI, +PLAN TO RUN INTO TRAFFIC, -HI. PT AOX4. NAD NOTED. RESP EVEN AND UNLABORED. PT ABLE TO PROVIDE URINE AT THIS TIME. PT DENIES PAIN AT THIS TIME. PT ON MONITOR IN BED 6. WILL CONTINUE TO MONITOR.
--- NOTE | 2019-06-29 02:18 | NUR ---
PHLEB AT BEDSIDE FOR BLOOD DRAW
[2019-06-29 02:25] LABS: APPEARANCE,URINE CLEAR (CLEAR); BILIRUBIN,URINE NEGATIVE (NEGATIVE); BLOOD, URINE NEGATIVE Ery/uL (NEGATIVE); COLOR,URINE YELLOW (YELLOW); KETONES,URINE NEGATIVE (NEGATIVE); LEUKOCYTE ESTERASE ,URINE NEGATIVE (NEGATIVE); NITRITE, URINE NEGATIVE (NEGATIVE); PROTEIN,URINE NEGATIVE (NEGATIVE); UGLUCOSE NEGATIVE (NEGATIVE); UROBILINOGEN,URINE 0.2 EU/dL (0.2)
[2019-06-29 02:39] LABS: BASOPHILS # (AUTO) 0.1 /CMM (0.0-0.2); BASOPHILS % (AUTO) 1.2 % (0.0-2.0); EOSINOPHILS % (AUTO) 1.3 % (0.0-6.0); HEMATOCRIT 46 % (39-51); HEMOGLOBIN 15.3 g/dL (13.5-17.5); LYMPHOCYTES # (AUTO) 2.5 /CMM (0.8-4.8); LYMPHOCYTES % (AUTO) 20.2 % (20.0-44.0); MEAN CORPUSCULAR HGB CONC 34 g/dl (31.0-36.0); MEAN CORPUSCULAR VOLUME 85 fL (80-96); MONOCYTES # (AUTO) 0.8 /CMM (0.1-1.30); MONOCYTES % (AUTO) 6.7 % (2.0-12.0); NEUTROPHILS # (AUTO) 8.6 /CMM (1.8-8.9); NEUTROPHILS % (AUTO) 70.6 % (43.0-81.0); PLATELET COUNT (AUTO) 222 /CMM (150-450); RED BLOOD CELL COUNT(AUTO) 5.36 MIL/uL (4.5-6.0); WHITE BLOOD COUNT (AUTO) 12.2 K/uL (4.3-11.0)
[2019-06-29 02:56] LABS: ALBUMIN 3.6 g/dL (3.4-5.0); BILIRUBIN,DIRECT 0.1 mg/dL (0.0-0.2); BILIRUBIN,TOTAL 0.2 mg/dL (0.2-1.0); CALCIUM, SERUM 8.9 mg/dL (8.5-10.1); CREATININE 1.2 mg/dL (0.6-1.3); POTASSIUM 4.2 mmol/L (3.5-5.1); TOTAL PROTEIN, SERUM 8.1 g/dL (6.4-8.2)
--- NOTE | 2019-06-29 03:34 | NUR ---
PT GIVEN FOOD AND BLANKETS. ALL NEEDS MET. WILL CONTINUE TO MONITOR.
--- NOTE | 2019-06-29 05:54 | NUR ---
Patient is resting comfortably in bed with eyes closed. Easily aroused. VSS.
--- NOTE | 2019-06-29 06:18 | NUR ---
PT AMBULATORY TO RESTROOM
--- NOTE | 2019-06-29 06:40 | NUR ---
Stuntman at bedside for redraw
--- NOTE | 2019-06-29 07:28 | NUR ---
Accepted by Dr [facility]. # for report [phone]
--- NOTE | 2019-06-29 09:05 | NUR ---
ETA for hop picker [id number] going to [facility] per Crystal
--- NOTE | 2019-06-29 09:59 | NUR ---
patient sitting at the edge of the bed, in no distress, ambulatory with steady gait.
--- NOTE | 2019-06-29 12:17 | NUR ---
UPDATED ETA 1245 PER [facility]
--- NOTE | 2019-06-29 13:12 | NUR ---
food provided to patient. in no distress. will continue to monitor accordingly.
--- NOTE | 2019-06-29 13:22 | NUR ---
CALLED [facility] TRIP#[id number]
--- NOTE | 2019-06-29 16:03 | NUR ---
[facility] ETA [phone]
--- NOTE | 2019-06-29 16:47 | NUR ---
REPORT GIVEN TO EMT/[facility] FOR CJ
[2019-06-29 17:12] VITALS: BP 130/71
--- NOTE | 2019-06-29 17:14 | NUR ---
patient was picked up by private ambulance going to [facility] as voluntary admission, in no distress.
== END 2019-06-29 17:14 ==
LOC: ER 01:24
DX: F32.9 Major depressive disorder, single episode, unspecified (principal); R45.851 Suicidal ideations; F17.200 Nicotine dependence, unspecified, uncomplicated; I10 Essential (primary) hypertension; E11.9 Type 2 diabetes mellitus without complications; F41.9 Anxiety disorder, unspecified; F20.9 Schizophrenia, unspecified; Z88.8 Allergy status to other drugs, medicaments and biological substances; Z59.0 Homelessness; Z79.899 Other long term (current) drug therapy; Z79.82 Long term (current) use of aspirin
CPT/HCPCS: 36415; 80048; 80076; 80305; 80307 ×2; 80329; 81001; 85025; 99285; 99406; G0480; 81000-TC

== ENCOUNTER 2019-09-25 09:57 | Emergency (ER) | payer MEDICAID ==
[~2019-09-25] VITALS: Ht 180.3 cm; Wt 178.3 kg
--- NOTE | 2019-09-25 10:00 | NUR ---
BIB RA [address] HERE FROM [facility] FOR MEDICAL CLEARANCE, SI W/ PLAN TO WALK INTO TRAFFIC,WANTS VOLUNTARY ADMISSION TO [facility]. PATIENT ALERT AND ORIENTED, VERBALLY RESPONSIVE, BREATHING EVEN AND UNLABORED, NO SOB NOTED. PATIENT APPEARS TO BE SLEEPY.
[2019-09-25] MEDS ORDERED: LORAZEPAM 1 MG TABLET ONE (10:07)
[2019-09-25 10:28] LABS: BASOPHILS # (AUTO) 0.1 /CMM (0.0-0.2); BASOPHILS % (AUTO) 0.8 % (0.0-2.0); EOSINOPHILS % (AUTO) 1.5 % (0.0-6.0); HEMATOCRIT 47 % (39-51); HEMOGLOBIN 15.6 g/dL (13.5-17.5); LYMPHOCYTES # (AUTO) 1.8 /CMM (0.8-4.8); MEAN CORPUSCULAR HGB CONC 33 g/dl (31.0-36.0); MEAN CORPUSCULAR VOLUME 90 fL (80-96); MONOCYTES # (AUTO) 0.7 /CMM (0.1-1.30); MONOCYTES % (AUTO) 7.4 % (2.0-12.0); NEUTROPHILS # (AUTO) 6.6 /CMM (1.8-8.9); NEUTROPHILS % (AUTO) 71.3 % (43.0-81.0); PLATELET COUNT (AUTO) 176 /CMM (150-450); RED BLOOD CELL COUNT(AUTO) 5.23 MIL/uL (4.5-6.0); WHITE BLOOD COUNT (AUTO) 9.3 K/uL (4.3-11.0)
[2019-09-25] MEDS ORDERED: LORAZEPAM 1 MG TABLET PO ONE (10:30)
[2019-09-25 10:42] LABS: CALCIUM, SERUM 8.5 mg/dL (8.5-10.1); CARBON DIOXIDE 26 mmol/L (21-32); CHLORIDE 106 mmol/L (98-107); CREATININE 1.2 mg/dL (0.6-1.3); GLUCOSE 100 mg/dL (74-106); POTASSIUM 3.7 mmol/L (3.5-5.1); SODIUM SERUM 143 mmol/L (136-145); UREA NITROGEN, BLOOD 14 mg/dL (7-18)
[2019-09-25 10:47] LABS: ALANINE AMINOTRANSFERASE 35 U/L (12-78); ALBUMIN 3.6 g/dL (3.4-5.0); ALCOHOL, BLOOD 151 mg/dL (0-0); ALKALINE PHOSPHATASE 91 U/L (46-116); ASPARTATE AMINOTRANSFERASE 23 U/L (15-37); BILIRUBIN,DIRECT 0.1 mg/dL (0.0-0.2); BILIRUBIN,TOTAL 0.3 mg/dL (0.2-1.0); TOTAL PROTEIN, SERUM 7.2 g/dL (6.4-8.2)
[2019-09-25 10:48] LABS: ACETAMINOPHEN 0 ug/ml (10-30); SALICYLATE 1.1 mg/dL (2.8-20.0)
--- NOTE | 2019-09-25 11:30 | NUR ---
URINE SAMPLE PROVIDED, AND SENT TO LAB.
[2019-09-25 11:57] LABS: APPEARANCE,URINE Clear (CLEAR); BILIRUBIN,URINE Negative (NEGATIVE); BLOOD, URINE Negative Ery/uL (NEGATIVE); COLOR,URINE Yellow (YELLOW); KETONES,URINE Negative (NEGATIVE); LEUKOCYTE ESTERASE ,URINE Negative (NEGATIVE); NITRITE, URINE Negative (NEGATIVE); PROTEIN,URINE Negative (NEGATIVE); UGLUCOSE Negative (NEGATIVE); UROBILINOGEN,URINE 0.2 EU/dL (0.2)
--- NOTE | 2019-09-25 14:48 | NUR ---
CALLED [facility] TO FOLLOW UP. INFORMED THAT THEY HAVE NOT RECIEVED CLINICALS. WILL SEND AGAIN
--- NOTE | 2019-09-25 16:20 | NUR ---
CALLED COUNTS INCLUDE 234 BEDS AT THE [facility] [phone] THEY ARE WAITING FOR ETOH LEVEL TO DROP DOWN.
--- NOTE | 2019-09-25 16:29 | NUR ---
NEED TO GET NEW SERUM ALCOHOL LVL.
--- NOTE | 2019-09-25 23:03 | NUR ---
PT ACCEPTED TO [facility] ACCEPTING MD: DR. STEARNS NUMBER FOR REPORT: [phone]
--- NOTE | 2019-09-25 23:07 | NUR ---
[facility] ETA 0000
--- NOTE | 2019-09-26 00:10 | NUR ---
REPORT GIVEN TO GARRISON SOLIMAN OF [facility] FOR CJ.
--- NOTE | 2019-09-26 00:15 | NUR ---
REPORT GIVEN TO EMS FOR PT TRANSFER BACK TO [facility].
[2019-09-26 00:16] VITALS: BP 128/71
== END 2019-09-26 00:15 | disposition short-term general hospital (02) ==
LOC: ER 10:06
DX: F20.9 Schizophrenia, unspecified (principal); R45.851 Suicidal ideations; F15.10 Other stimulant abuse, uncomplicated; I10 Essential (primary) hypertension; E11.9 Type 2 diabetes mellitus without complications; F41.9 Anxiety disorder, unspecified; F32.9 Major depressive disorder, single episode, unspecified; Z88.8 Allergy status to other drugs, medicaments and biological substances; Z59.0 Homelessness; Z79.899 Other long term (current) drug therapy; Z79.82 Long term (current) use of aspirin
CPT/HCPCS: 36415; 80048; 80076; 80305; 80307 ×2; 80329; 81001; 84484; 85025; 99285; G0480; 81000-TC